=== PATIENT | male | born 1990 | race Caucasian/White ===

== ENCOUNTER 2021-12-01 09:23 | Outpatient (REF) | payer OTHER, SELFPAY ==
[2021-12-01 09:46] LABS: COVID-19 Test Positive (Negative)
== END 2021-12-01 09:24 | disposition home or self-care (01) ==
LOC: HO.LNP 09:23
PROVIDERS: Visit Provider Internal Medicine
DX: J02.9 Acute pharyngitis, unspecified (principal); J34.89 Other specified disorders of nose and nasal sinuses; Z20.822 Contact with and (suspected) exposure to COVID-19
CPT/HCPCS: 87635